=== PATIENT | male | born 1985 | race Caucasian/White ===

== ENCOUNTER 2019-11-08 21:33 | Emergency (ER) | payer MEDICAID ==
[~2019-11-08] VITALS: Ht 182.9 cm; Wt 66.0 kg
[2019-11-08 21:35] VITALS: BP 165/85
--- NOTE | 2019-11-08 21:50 | NUR ---
XRAY AT BEDSIDE.
--- NOTE | 2019-11-08 22:46 | NUR ---
Patient/Caregiver given discharge instructions and they have confirmed that they understand the instructions. Patient ambulatory with steady gait.
== END 2019-11-08 22:53 | disposition home or self-care (01) ==
LOC: ED 22:40
DX: S63.521A Sprain of radiocarpal joint of right wrist, initial encounter (principal); S30.0XXA Contusion of lower back and pelvis, initial encounter; W01.0XXA Fall on same level from slipping, tripping and stumbling without subsequent striking against object, initial encounter; Y93.89 Activity, other specified; Y92.89 Other specified places as the place of occurrence of the external cause; Y99.8 Other external cause status
CPT/HCPCS: 29125; 99283